=== PATIENT | female | born 1960 | race Caucasian/White ===

== ENCOUNTER → 2024-03-15 15:14 | Outpatient (REF) | payer OTHER, SELFPAY | LOC: WDC 15:14 | PROVIDERS: ATTENDING PHYSICIAN Radiology Radiation Oncology; FAMILY PHYSICIAN Internal Medicine | DX: Z12.31 Encounter for screening mammogram for malignant neoplasm of breast (principal) | CPT/HCPCS: 77063; 77067 ==

== ENCOUNTER → 2024-10-04 13:21 | Outpatient (REF) | payer OTHER, SELFPAY | LOC: RAD 13:21 | PROVIDERS: ATTENDING PHYSICIAN Internal Medicine | DX: R11.2 Nausea with vomiting, unspecified (principal) | CPT/HCPCS: 71260; 74178; Q9967 ==

== ENCOUNTER 2024-11-06 06:03 | Day surgery (SDC) | payer OTHER, SELFPAY ==
[2024-10-23 09:01] LABS: INR 1.03; PT 13.9 Sec (11.4-14.6)
[2024-10-23 09:02] LABS: APTT 27.9 Sec (23.4-35.0)
[2024-10-23 09:03] LABS: Hematocrit 37.2 % (37.0-47.0); Hemoglobin 12.5 g/dL (12.0-16.0); Mean Corp Hgb Conc. 33.6 g/dL (33.0-37.0); Mean Corpuscular Hgb 30.6 pg (27.0-31.0); Mean Corpuscular Volume 91.2 fL (81.0-99.0); Mean Platelet Volume 10.6 fL (7.4-10.4); Platelet Count 282 10^3/uL (130-400); Red Blood Cell Count 4.08 10^6/uL (4.20-5.40); Red Cell Dist. Width 12.6 % (11.5-14.5); White Blood Cell Count 5.1 10^3/uL (4.8-10.8)
[2024-10-23 09:23] LABS: Blood Urea Nitrogen 11 mg/dl (7-17); Calcium 9.9 mg/dl (8.4-10.2); Carbon Dioxide 29 mmol/L (22-30); Chloride 107 mmol/L (98-107); Glucose 86 mg/dl (70-99); Potassium 3.8 mmol/L (3.5-5.1); Sodium 143 mmol/L (135-145); eGFR > 60.00
[2024-10-23 13:42] VITALS: BMI 22.0
[2024-11-06] VITALS (8 sets, daily range): BP systolic 76–108; BP diastolic 49–68; BMI 22.0
== END 2024-11-06 10:45 | disposition home or self-care (01) ==
LOC: GI 06:03
PROVIDERS: ATTENDING PHYSICIAN Internal Medicine Critical Care Medicine; FAMILY PHYSICIAN Internal Medicine
DX: R91.1 Solitary pulmonary nodule (principal); R59.1 Generalized enlarged lymph nodes; C34.11 Malignant neoplasm of upper lobe, right bronchus or lung
CPT/HCPCS: 31628; 31624; 31629; 31623; 31627; 31654; 88173; 88305; 36415; 71045; 76000; 80048; 81459; 85027; 85610; 85730; 88112; 88333; 88341; 88342; 93005; 94640; C1887

== ENCOUNTER → 2024-11-08 07:50 | Outpatient (REF) | payer OTHER, SELFPAY | LOC: PET 07:50 | PROVIDERS: ATTENDING PHYSICIAN Family Medicine Geriatric Medicine | DX: C50.211 Malignant neoplasm of upper-inner quadrant of right female breast (principal); R91.1 Solitary pulmonary nodule | CPT/HCPCS: 78815; A9552 ==

== ENCOUNTER → 2024-11-17 09:08 | Outpatient (REF) | payer OTHER, SELFPAY ==
[2024-11-17] VITALS (8 sets, daily range): BP systolic 65–104; BP diastolic 50–73
[2024-11-17 09:36] LABS: % Basophils 0.8 % (0-2); % Eosinophils 1.6 % (0-6); % Immature Granulocytes 0.2 % (0-0.5); % Lymphocytes 31.8 % (20.5-51.1); % Monocytes 10.4 % (1.7-9.3); % Neutrophils 55.2 % (42.2-75.2); Absolute Eosinophils 0.1 10^3/uL (0-0.7); Absolute Lymphocytes 1.6 10^3/uL (1.2-3.4); Absolute Monocytes 0.5 10^3/uL (0.1-0.6); Absolute Neutrophils 2.7 10^3/uL (1.4-6.5); Hematocrit 36.6 % (37.0-47.0); Hemoglobin 12.7 g/dL (12.0-16.0); Mean Corp Hgb Conc. 34.7 g/dL (33.0-37.0); Mean Corpuscular Hgb 31.4 pg (27.0-31.0); Mean Corpuscular Volume 90.4 fL (81.0-99.0); Mean Platelet Volume 9.9 fL (7.4-10.4); Nucleated Red Blood Cells % 0 %; Platelet Count 271 10^3/uL (130-400); Red Blood Cell Count 4.05 10^6/uL (4.20-5.40); Red Cell Dist. Width 12.8 % (11.5-14.5); White Blood Cell Count 4.9 10^3/uL (4.8-10.8)
[2024-11-17 09:51] LABS: INR 1.08; PT 14.4 Sec (11.4-14.6)
== END ==
LOC: RADI 09:08
PROVIDERS: ATTENDING PHYSICIAN Internal Medicine Hematology & Oncology; FAMILY PHYSICIAN Internal Medicine; REFERRING PHYSICIAN Physician Assistant
DX: C79.51 Secondary malignant neoplasm of bone (principal); C50.911 Malignant neoplasm of unspecified site of right female breast
CPT/HCPCS: 88173; 88305; 20225; 36415; 77012; 85025; 85610; 88333; 88334; 88341; 88342; 88360; 99152; 99153

== ENCOUNTER → 2024-12-01 12:44 | Outpatient (REF) | payer OTHER, SELFPAY | LOC: MRI 3T 12:44 | PROVIDERS: ATTENDING PHYSICIAN Internal Medicine Hematology & Oncology; FAMILY PHYSICIAN Internal Medicine | DX: C50.911 Malignant neoplasm of unspecified site of right female breast (principal); Z13.820 Encounter for screening for osteoporosis; C34.91 Malignant neoplasm of unspecified part of right bronchus or lung | CPT/HCPCS: 70553; A9575 ==

== ENCOUNTER → 2024-12-04 11:43 | Outpatient (REF) | payer OTHER, SELFPAY | LOC: RAD 11:43 | PROVIDERS: ATTENDING PHYSICIAN Internal Medicine Hematology & Oncology; FAMILY PHYSICIAN Internal Medicine | DX: C50.911 Malignant neoplasm of unspecified site of right female breast (principal); Z13.820 Encounter for screening for osteoporosis; C34.91 Malignant neoplasm of unspecified part of right bronchus or lung | CPT/HCPCS: 93005 ==

== ENCOUNTER 2024-12-25 07:55 | Inpatient (IN) | payer MEDICARE, OTHER, SELFPAY ==
[2024-12-19 12:03] VITALS: BMI 21.3
[2024-12-19 12:48] LABS: Urine Albumin 2+ (Neg - Trace); Urine Bilirubin 1+ (Negative); Urine Character Slightly Cloudy (Clear); Urine Color Yellow; Urine Glucose Negative (Negative); Urine Ketone 2+ (Negative); Urine Leukocyte 3+ (Negative); Urine Nitrite Negative (Negative); Urine Occult Blood Negative (Negative); Urine Urobilinogen 1+ (Neg - 1+)
[2024-12-19 12:53] LABS: Hematocrit 31.6 % (37.0-47.0); Mean Corp Hgb Conc. 34.8 g/dL (33.0-37.0); Mean Corpuscular Hgb 31.3 pg (27.0-31.0); Mean Platelet Volume 10.4 fL (7.4-10.4); Platelet Count 197 10^3/uL (130-400); Red Blood Cell Count 3.51 10^6/uL (4.20-5.40); Red Cell Dist. Width 12.6 % (11.5-14.5); White Blood Cell Count 2.9 10^3/uL (4.8-10.8)
[2024-12-19 12:58] LABS: INR 1.06; PT 14.1 Sec (11.4-14.6)
[2024-12-19 12:59] LABS: APTT 25.4 Sec (23.4-35.0)
[2024-12-19 13:02] LABS: Urine Bacteria Few (Negative); Urine Mucus Few; Urine Squamous Cell 0-2 /LPF (Few)
[2024-12-19 13:03] LABS: Urine Red Blood Cell 0-2 /HPF (0-2)
[2024-12-19 13:13] LABS: ALT (SGPT) 14 U/L (0-35); AST (SGOT) 19 U/L (14-36); Alkaline Phosphatase 54 U/L (38-126); Blood Urea Nitrogen 12 mg/dl (7-17); Calcium 9.2 mg/dl (8.4-10.2); Carbon Dioxide 26 mmol/L (22-30); Chloride 106 mmol/L (98-107); Direct Bilirubin 0.1 mg/dl (0.0-0.4); Estimated Creatinine Clearance 61 ml/min; Glucose 124 mg/dl (70-99); Potassium 3.4 mmol/L (3.5-5.1); Sodium 138 mmol/L (135-145); Total Bilirubin 0.5 mg/dl (0.2-1.3); Total Protein 6.1 g/dl (6.3-8.2); eGFR > 60.00
[2024-12-19 13:36] LABS: % Basophils 0.7 % (0-2); % Eosinophils 0.7 % (0-6); % Immature Granulocytes 0.3 % (0-0.5); % Monocytes 4.4 % (1.7-9.3); % Neutrophils 50.9 % (42.2-75.2); Absolute Lymphocytes 1.3 10^3/uL (1.2-3.4); Absolute Monocytes 0.1 10^3/uL (0.1-0.6); Absolute Neutrophils 1.5 10^3/uL (1.4-6.5); Nucleated Red Blood Cells % 0 %
--- NOTE | 2024-12-19 13:41 | CM ---
Chart reviewed. Met with the patient in PAT. Reviewed preoperative and postoperative instructions and restrictions, along with showering guidelines. Gave patient 2 soaps. Patient is agreeable to a home visit by CT Transitional RN. Patient is
independent of ADLS, lives with her brother in a [address], 6 MARY, 0 DME. Plan is for the patient to return home with CT Transitional RN.
[2024-12-19 14:26] LABS: Glycohemoglobin (HgbA1c) 5.4 % (4.0-5.6)
[2024-12-25] VITALS (18 sets, daily range): BP systolic 88–112; BP diastolic 52–74; BMI 20.5
--- NOTE | 2024-12-25 09:00 | PTCARENOTE ---
Patient admitted to room 2267 in anticipation of surgical procedure this am. Patient admits to NPO since midnight, CHG showers completed at home. VS obtained, admission and medication reconciliation completed. Patient oriented to room, unit. Brother
at bedside.
--- NOTE | 2024-12-25 09:50 | CM ---
Patient in OR today for CT Surgery, RU Lobectomy.
Reviewed initial assessment. Pt. resides w/ brother in a private, [facility] with 6 MARY. Functionally, patient is indep. w/ ADLs, mobility without the use of any assisted device.
Antic. DC plan is for home w/ CT Transitional Care RN.
CM to follow.
--- NOTE | 2024-12-25 10:15 | PTCARENOTE ---
Patient transported to [facility] via bed.
[2024-12-25 10:51] LABS: Urine Albumin Negative (Neg - Trace); Urine Bilirubin Negative (Negative); Urine Character Clear (Clear); Urine Color Yellow; Urine Glucose Negative (Negative); Urine Ketone 1+ (Negative); Urine Leukocyte Negative (Negative); Urine Nitrite Negative (Negative); Urine Occult Blood Negative (Negative); Urine Urobilinogen Negative (Neg - 1+)
--- NOTE | 2024-12-25 11:13 | W.CVOR.SURPR ---
CVOR Surgeon Immed Pre Op
-
I have examined this patient prior to performance of the scheduled procedure.
The patient's condition is unchanged from the time of the dictated/written History and
Physical and the patient is able to undergo the scheduled procedure.
Geo RUL _ LN
--- NOTE | 2024-12-25 14:03 | CON.INTV ---
Consultation
Consultation Request
Date/Time Consultation Requested: 12/25/2024 - 1349
Date/Time Consultation Performed: 12/25/2024 - 1408
Requesting Provider: Silvia Ritchie NP
Performing Provider: Dr. Ocasio
Reason for Consultation: RUL-lobectomy
Medical History
-
Chief Complaint: Elective right upper lobectomy
History of Present Illness:
63-year-old female with a history of recurrent metastatic breast cancer with bony mets, chemotherapy-induced peripheral neuropathy, anemia, Rosita's disease, hypercholesterolemia, right shoulder arthritis, latent TB, and right-sided pulmonary
adenocarcinoma who presents for robotic assisted right upper lobectomy. Patient known to the cardiothoracic surgery service with last visit on 12/13/[address] Jones. On 10/04/2024, patient had a CT chest, abdomen, pelvis due to nausea, vomiting,
weight loss and history of breast cancer. A right upper lobe nodule measuring 1.6 cm was discovered. She was arranged for a robotic bronchoscopy which she obtained on 11/06/2024 of the anterior right upper lobe by Dr. Curiel. Surgical biopsy
showed pulmonary adenocarcinoma, and 4R, station 7 and 10R lymph nodes were all negative for malignancy. [facility] PET/CT on 11/08/2024 showed a 1.9 cm malignant right upper lobe pulmonary nodule with metastatic right hilar lymphadenopathy and
multifocal osseous metastatic disease with a small metastatic left external iliac lymph node. The right upper lobe nodule SUV max was 6.4 with delayed 5.6. The right hilar lymph node SUV max was 7.1 with delayed 7.9 with no abnormal increased FDG
uptake in the left hilar, supraclavicular, axillary lymph nodes or mediastinum. She was then referred to cardiothoracic surgery for evaluation for lobectomy. PET/CT also showed multiple FDG avid lesions in her skeleton concerning for metastatic
disease. There was a lytic metastasis lesion in the left T9 transverse process measuring SUV max 9.2. On 11/17, IR performed a CT-guided left T9 transverse process FNA which was positive for metastatic carcinoma, with surgical biopsy positive for
metastatic mammary carcinoma (ER + WV positive, HER2 negative). Patient was recommended for resection by oncology, and the patient discussed the risks and benefits of a robotic assisted right upper lobectomy with lymph node dissection. Patient
agreed to this procedure and today she underwent a right upper lobectomy with lymph node dissection and was transferred to the CVICU postoperatively. Family Life Counselor service is now consulted for additional management/recommendations.
When I saw the patient, she was resting in bed in no acute distress. Currently on 2 L/min nasal cannula breathing comfortably. Heart rate 66, BP via A-line 107/53 and BP via NIBP: 108/74. Right-sided chest tube in place on waterseal. She does
endorse right-sided chest pain and also nausea, but no GE, SOB, abd pain, fevers or chills.
Of note, patient was seen in the [facility] office with Dr. Cortez, last visit 10/11/2024. She was seen as a office visit prior to the robotic bronchoscopy on 11/06/2024. She was told to obtain PFTs and she had this done here in the hospital on 12/19/2024
showing a mild restrictive lung defect (T% predicted), with a borderline reduced gas exchange capacity (DLco: 72%).
PMHx: Right lung pulmonary adenocarcinoma, recurrent metastatic breast cancer with bone mets, chemotherapy-induced peripheral neuropathy (paclitaxel), anemia, Rosita's disease, hypercholesterolemia, right shoulder arthritis, migraine headaches,
history of latent TB
PSHx: Right breast mastectomy (10/2020), laparoscopic cholecystectomy, port placement followed by port removal, left cataract surgery, right cataract surgery, ex lap due to fertility issues, T&A
Past Medical History
Past Medical History: Other (Above as per HPI)
Past Surgical History: Other (Above as per HPI)
Social History
Tobacco: Non-smoker
Alcohol: None
Drug: None
Personal:
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
Family History
Family History: Cancer (Maternal grandfather: leukemia; Brother: skin cancer) and Other (Father: Pancreatitis due to alcohol use; Mother: RA/stroke)
Allergies / Home Medications
Allergies
Allergy/AdvReac Type Severity Reaction Status Date / Time
cephalexin Allergy Nausea Verified 12/18/24 12:10
NOVOCAINE Allergy Nausea / Uncoded 12/18/24 12:10
Vomiting
Home Medications
�Medication �Instructions �Recorded �Confirmed �Last Taken �Type
thyroid (pork) 60 mg tablet 60 mg PO SUTUTHSA Thyroid 10/30/20 12/25/24 12/24/24 History
([place] Thyroid)
omega 5-why-kho-fish oil 300 2 ea PO DAILY Supplement 12/09/20 12/18/24 11/03/24 History
mg-1,000 mg capsule (Fish Oil)
thyroid (pork) 30 mg tablet 45 mg PO MOWEFR Thyroid 07/03/21 12/25/24 12/22/24 History
([place] Thyroid)
alpha lipoic acid 100 mg capsule 100 mg PO DAILY Supplement 11/02/24 12/18/24 10/23/24 History
flaxseed oil 1,000 mg capsule 1,000 mg PO DAILY Supplement 11/02/24 12/18/24 11/03/24 History
magnesium carb,citrate,oxide 300 - 600 mg PO DAILY Electrolyte 11/02/24 12/25/24 12/18/24 History
(Magnesium Complex) Repletion
red yeast rice 600 mg capsule 600 mg PO DAILY Supplement 11/02/24 12/18/24 11/03/24 History
vitamin D3 125 mcg (5,000 1 cap PO DAILY Supplement 11/02/24 12/25/24 12/18/24 History
unit)-vitamin K2 100 mcg capsule
Medical Cannibus 1 dose sublingual PRN PRN pain 12/18/24 Unknown History
ibuprofen 200 mg tablet 400 mg PO Q6H PRN pain 12/18/24 12/25/24 12/18/24 History
fulvestrant 125 mg/2.5 mL 500 mg IM Q14D Cancer 12/25/24 12/25/24 12/11/24 History
intramuscular syringe
ribociclib 600 mg/day (200 mg x 3) 600 mg PO DAILY Cancer 12/25/24 12/25/24 12/17/24 History
tablets (Kisqali)
Review of Systems
-
History Source: Patient
All other systems: Negative unless noted
Vitals / Labs / Diagnostic Testing
Vital Signs
Temp Pulse Resp BP Pulse Ox
97.7 F 58 14 94/66 100
12/25/24 07:57 12/25/24 07:57 12/25/24 07:57 12/25/24 07:57 12/25/24 07:57
Lab Data
12/19/24 12:14
12/19/24 12:14
Diagnostic Testing:
Physical Exam
-
HEENT: Normocephalic and Anicteric
Cardiovascular: S1/S2 and Peripheral Edema (negative)
Respiratory: Wheeze (negative), Rales (negative), Rhonchi (negative), Non-Labored Respirations and Other (Right-sided chest tube on continuous waterseal - no airleak)
GI: Soft, Non Distended, Non Tender and Normal Bowel Sounds
Neurology: AO x 3 and Tremors (negative)
Skin: Warm and Dry
General: Respiratory Distress (negative), Pain (Right-sided hemithorax/ribs), Fever (negative) and Chills (negative)
Assessment
-
Assessment: 63-year-old female with a history of recurrent metastatic breast cancer with bony mets, chemotherapy-induced peripheral neuropathy, anemia, Rosita's disease, hypercholesterolemia, right shoulder arthritis, latent TB, and right-sided
pulmonary adenocarcinoma who presents for robotic assisted right upper lobectomy. Patient known to the cardiothoracic surgery service with last visit on 12/13/[address] Jones. On 10/04/2024, patient had a CT chest, abdomen, pelvis due to nausea,
vomiting, weight loss and history of breast cancer. A right upper lobe nodule measuring 1.6 cm was discovered. She was arranged for a robotic bronchoscopy which she obtained on 11/06/2024 of the anterior right upper lobe by Dr. Curiel. Surgical
biopsy showed pulmonary adenocarcinoma, and 4R, station 7 and 10R lymph nodes were all negative for malignancy. [facility] PET/CT on 11/08/2024 showed a 1.9 cm malignant right upper lobe pulmonary nodule with metastatic right hilar lymphadenopathy
and multifocal osseous metastatic disease with a small metastatic left external iliac lymph node. The right upper lobe nodule SUV max was 6.4 with delayed 5.6. The right hilar lymph node SUV max was 7.1 with delayed 7.9 with no abnormal increased
FDG uptake in the left hilar, supraclavicular, axillary lymph nodes or mediastinum. She was then referred to cardiothoracic surgery for evaluation for lobectomy. PET/CT also showed multiple FDG avid lesions in her skeleton concerning for
metastatic disease. There was a lytic metastasis lesion in the left T9 transverse process measuring SUV max 9.2. On 11/17, IR performed a CT-guided left T9 transverse process FNA which was positive for metastatic carcinoma, with surgical biopsy
positive for metastatic mammary carcinoma (ER + WV positive, HER2 negative). Patient was recommended for resection by oncology, and the patient discussed the risks and benefits of a robotic assisted right upper lobectomy with lymph node dissection.
Patient agreed to this procedure and today she underwent a right upper lobectomy with lymph node dissection and was transferred to the CVICU postoperatively. Family Life Counselor service is now consulted for additional management/recommendations.
Chronic conditions PROJECT PRODUCT MANAGER: Right lung pulmonary adenocarcinoma, recurrent metastatic breast cancer with bone mets, chemotherapy-induced peripheral neuropathy (paclitaxel), anemia, Rosita's disease, hypercholesterolemia, right shoulder arthritis,
migraine headaches, history of latent TB
Impression:
#Right-sided pulmonary adenocarcinoma (Stage IA2) s/p RATS�right upper lobectomy with radical lymph node dissection (POD #0)
#Acute anemia due to above
#Hypokalemia
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
#Mild restrictive lung disease (T%, vital capacity: 82% per PFTs from 12/19/2024)
#Rosita's thyroiditis
#Hypercholesterolemia
#Right shoulder arthritis
Plan:
Patient was received from the PACU to the CVICU already extubated, currently on 2 L/min nasal cannula saturating 99% and breathing comfortably
Maintain SpO2 >90-94%
prn nebulized bronchodilators - not currently bronchospastic
Encourage incentive spirometer use q1hr while awake
Pulmonary artery catheter parameters will be followed
Pressors/antihypertensive/inotropes/diuretics will be provided as needed
Maintain MAP>65
Replete electrolytes with K>4, Mg>2
Monitor chest tube output (right-sided chest tube x1 - currently on CWS)
Monitor hemoglobin
Monitor platelet count and coags
Transfuse blood products as needed to maintain Hb>7g/dL, plt>50k (given post-operative status)
CT surgery managing chest tubes
Monitor blood sugar to maintain euglycemia with goal BG 110-140
Continue ISS to keep BG at goal as above
Aspiration precautions
DVT prophylaxis
Early nutrition
Early mobilization
Following discharge, patient is to follow-up with [facility] office with Dr. Cortez, as last visit on 10/11/2024.
Continue CVICU level care for this critically ill patient.
Critical care statement: A total of 36 minutes of critical care time was provided for this patient today. This includes management of ventilator, spontaneous breathing trial, arterial blood gases, pressors, of unstable vital signs, evaluation of the
patient at bedside, reviewing the patient's pertinent medical records including radiographs, microbiology, laboratory evaluations, and discussion with primary team and critical care nursing.
Pertinent pulmonary studies:
PFT 12/19/2024:
Mild restrictive lung defect with a borderline mildly reduced gas exchange capacity. No evidence of obstruction. FEV1/FVC: 81/103%, FEV1: 2.14 L / 91%, FVC: 2.64 L / 88%, T%, VC: 82%, RV: 51%, DLco (uncorrected): 72%, DLco (corrected): 76%
--- NOTE | 2024-12-25 14:18 | W.PN.CT.SURG ---
CT Surgery Operative Note
-
THORACIC SURGERY OPERATIVE REPORT
Preoperative Diagnosis: Pulmonary adenocarcinoma of the right upper lobe
Postoperative Diagnosis: Same
Procedure(s) Performed:
1. Robotic assisted thoracic surgery [RATS]
2. Right upper lobectomy
3. Radical lymph node dissection
4. Intercostal nerve block interspaces 4 through 8
Date of Surgery: 12/25/2024
Comorbidities:
1. Metastatic breast cancer on chemotherapy and immunotherapy status post radiation
2. Malnourished, weight loss
3. Rosita's disease
4. Thyroid disease
5. Right upper lobe primary pulmonary adenocarcinoma
Attending Surgeon: Thai Jones MD, MS
Assistants: Ghada Daugherty PA-C (present and necessary to assistant merchandiser, exchanging robotic instruments, retraction, suction, exposure, suture management, and wound closure under my direction)
Anesthesiology: Elkin Meyer MD and Viktor Daigle CRNA
Scrub and Circulating RNs: Sherrie Black RN, Merritt Macias RN
Anesthesia: Dual Lumen GETA
EBL: 100 cc
Products: None
Indication(s) for Procedures: This is a 63-year-old female who has a metastatic hormone receptor positive breast cancer and was newly diagnosed with non-small cell lung cancer. Multidisciplinary team discussion was that her survival was likely at
least 35% in 5 years and so with her stage I lung cancer, we opted for surgical resection as well as lymph node dissection. This was discussed with the patient and shared decision making was to pursue operative intervention.
Findings: There are no obvious intrathoracic lesions concerning for metachronous disease, she did well developed fissures between the right upper and right middle and right upper and right lower lobes. She had large bridging veins between the right
upper and right middle lobes these were taken with a vessel sealer intraoperatively. The right middle vein was isolated identified going to the right middle lobe. The veins heading up towards the right upper lobe were then transected with a white
load stapler flush to their hilar base. This then opened up the hilum in order to expose the major bronchus branch leading to the right upper lobe as well as a single ascending branch off the basilar PA. There was a very large somewhat calcified
and hard station 11 lymph node thousand touch to the bronchus leading to the right upper lobe. This was taken and sent out as part of the specimen. This then exposed the hilum. Any parenchymal tissue between the right upper and right lower lobes
were then divided with a green load stapler. Once all arteries were divided, the lung was elevated and the bronchus to the right upper lobe was then clamped and test inflation was done. This demonstrated unobstructed flow to the remaining right
middle and right lower lobes. Lung was then transected and placed into a specimen bag along with that abnormal appearing station 11 lymph node. She had several chest wall bleeding vessels that required electrocautery. Otherwise both right lower
and right middle lobes expanded easily and she had no significant loss of tidal volume or air leak at conclusion of the case.
Specimen(s):
Station 9, x 3 nodes
Station 10, x 1 nodes
Station 11, x 3 nodes (there was 1 enlarged, hard, and abnormal appearing node)
Station 2/4 sent off as a packet
Station 7, x 4 nodes
Right upper lobe
Description of Procedure: The patient was taken to the operating room. Induction via general anesthesia with endotracheal intubation was performed and peripheral venous access and arterial monitoring were inserted. Their identity and procedure to be
performed were verified and they were positioned with the right side up on the operating table. The patient was then prepped and draped in a sterile fashion. A preoperative time-out was performed with all members of the team present. A Veress
needle was used to insufflate the chest after isolating the lung. An 8 mm port was placed in the midaxillary line at approximately the eighth intercostal space and confirmed to be intrathoracic without significant pulmonary injury. The chest was
surveyed for any evidence of metastatic disease. Patient tolerate insufflation without complication. 2 additional 12 mm trocars were placed on either side under camera guidance and a third 8 mm trocar was placed along the back. A 12 mm medical clerical assistant
port was placed in the 11th intercostal space above the insertion of the diaphragm. An intercostal nerve block was performed at intercostal spaces 4 through 8.
The thoracic cavity was inspected for evidence of metastatic disease. None was observed. We started with mobilization of the inferior pulmonary ligament. We worked our way clockwise dissecting out the hilum and harvest any lymph nodes identified.
The pulmonary arteries and veins leading to the right upper lobe were identified and skeletonized. They were sequentially divided with a white load stapler. I clamped the bronchus and performed a test inflation which demonstrated unobstructed flow
into the remaining right middle and lower lobe. The specimen was displaced toward the apex while a chest tube was inserted and placed laterally towards the apex. A bubble test was performed to identify any air leaks. CoSeal was used to reinforce
the staple lines and hilum. The right upper lobe was then placed into a specimen bag and extracted from the chest cavity. There were several chest wall bleeding sites from the port sites this required manipulation of the camera through different
ports in order to expose the bleeding vessels which were cauterized. After confirming hemostasis, the lung was fully inflated and all ports were removed. Incisions were closed in 3 layers including the fascia, dermal, and epidermis. Additional
local anesthesia was injected into all incision sites. The skin wound was cleansed and sealed with Dermabond glue.
All instrument, sponge, and needle counts were confirmed to be correct x 2 at the end of the operation. The patient was transferred to the cardiac intensive care unit extubated in critical but stable condition.
I, Dr. Thai Jones, was present, scrubbed for, and performed all critical elements of this procedure.
Thai Jones MD, MS
Cardiothoracic Surgeon
[facility]
This operative dictation was created using the zePASS dictation system. Please excuse any grammatical, typographical, or 'sound alike' errors
[2024-12-25] MEDS: ANCEF IV (15:05)
[2024-12-25] MEDS: DILAUDID 0.25 MG IV ×2 (15:12→20:34)
[2024-12-25] MEDS: ANCEF 10 IV (15:56)
--- NOTE | 2024-12-25 16:35 | PTCARENOTE ---
Patient received from PACU s/p RU lobectomy. SB/NSR via cm, SaO2 @ 99% on 2lnc. L radial arterial line present - leveled, flushed, and calibrated w/good waveform returned. R mid-axillary chest tube to H2O seal, no crepitus noted. All procedural
sites stable. Patient updated to plan of care for the evening, in agreement. Family to bedside. See work list for full assessment and interventions performed.
[2024-12-25] MEDS: NEURONTIN 100 MG PO ×2 (16:53→21:46)
[2024-12-25] MEDS: ANCEF 5 IV (17:54)
[2024-12-25] MEDS: ZOFRAN 4 MG IV (20:30)
[2024-12-25] MEDS: SENOKOT 8.6 MG PO (20:35)
--- NOTE | 2024-12-25 21:00 | PTCARENOTE ---
Assumed care of pt from alexsandra RN. Walking rounds completed. Pt is AAOx3. Pt assisted out of the bed and to the commode to void w/ assistx1. Pt able to void then positioned back into bed. During transfer back to bed - pt became nauseous. Zofran
given - see MAR. Pt sinus charlotte to SR on the tele monitor. HR 50-60s. BP stable. Palpable pulses throughout. No edema. Pt on 2 L NC. POX 98%. Right midaxillary CT to water seal. No airleak noted. +tidaling. CT output appropriate. Abdomen
soft/nontender. Hypoactive BS. Pt voided post [place] removal. All surgical sites stable. PIV x2 intact. Pt c/o pain - see MAR for pain medication administration. Pt repositioned in bed for comfort. See worklist for full nursing assessment and
interventions. Call segovia within reach.
[2024-12-25] MEDS: TYLENOL 1000 MG PO (21:46)
[2024-12-26] VITALS (11 sets, daily range): BP systolic 82–102; BP diastolic 50–65; BMI 20.9
[2024-12-26] MEDS: HEPARIN 5000 UNITS SC ×2 (00:23→08:07)
[2024-12-26] MEDS: DILAUDID 0.25 MG IV (00:23)
--- NOTE | 2024-12-26 00:54 | PTCARENOTE ---
Pt reassessed. Sinus charlotte to SR on the tele monitor. HR 50-60s. BP stable. Pt is 97% on 2 L NC. CTx1 assessment unchanged. No airleak. +Tidaling. A-febrile. Pt reposited in bed. See MAR for pain medication administration. Call segovia within reach.
--- NOTE | 2024-12-26 01:03 | W.PN.CT ---
Today's Communication / Plan
-
Plan:
-No major issues overnight. Hemodynamically and neurologically intact
-Successfully extubated in OR
-A-line and [place] removed shortly after surgery
-Chest tube placed on water seal yesterday. Drainage: 110/190
-No air leak noted, No ptx or significant SQ emphysema on cxr this AM on my assessment, f/u official report
-Will consider water seal another day vs clamping and d/c of chest tube today
-OOB into chair/Ambulate
-F/U pathology
Assessment / Plan
-
Assessment:
-S/P Robotic assisted thoracic surgery [RATS]/Right upper lobectomy/Radical lymph node dissection/Intercostal nerve block interspaces 4 through 8, by Dr. Jones, 12/25/24, pod#1
-Metastatic breast cancer on chemotherapy and immunotherapy status post radiation
-Malnourished, weight loss
-Rosita's disease
-Right upper lobe primary pulmonary adenocarcinoma
-Anemia
-HLD
-Osteoarthritis
-Hx Breast ca S/P R mastectomy, 2020
-S/P port placement and removal, 2020
-S/p b/l cataracts
-S/P T&A
Discussed patient care with: Nursing, Respiratory Therapy, Pharmacy and Care Team
Subjective
Procedure
-S/P Robotic assisted thoracic surgery [RATS]/Right upper lobectomy/Radical lymph node dissection/Intercostal nerve block interspaces 4 through 8, by Dr. Jones, 12/25/24
-
Date of Service: December 26, 2024
Pt c/o mild incisional pain and nausea, otherwise feels well. Nausea has resolved
Objective Data
-
PT 14.1 Sec (11.4-14.6) 12/19/24 12:14
INR 1.06 12/19/24 12:14
APTT 25.4 Sec (23.4-35.0) 12/19/24 12:14
Vital Signs
Vital Signs
Temp Pulse Resp BP Pulse Ox
98 F 63 20 102/59 100
12/26/24 00:00 12/26/24 00:15 12/26/24 00:15 12/26/24 00:00 12/26/24 00:15
CT Intake/Output/Weight
12/25/24 12/25/24 12/26/24
06:59 18:59 06:59
Intake Total 485 / 485
Output Total 80 / 840 760 / 840
Balance 405 / -355 -760 / -355
SaO2: 100 (2L)
Physical Exam
-
General: Awake, Oriented and AOx3
Cardiovascular: Regular rate & rhythm and No Murmurs
Respiratory: Decreased Breath Sounds (on right)
Incision: Clean, Dry, Intact and Dressing Intact
Extremities: No Edema
Data Reviewed
-
Lab Results: Results Reviewed
Medications: Active Meds Reviewed
Chest X-Ray: Report Reviewed and Image Reviewed
ECG: Report Reviewed and Image Reviewed
[2024-12-26] MEDS: ANCEF 5 IV ×2 (02:08→09:44)
[2024-12-26 02:38] LABS: Hematocrit 32.4 % (37.0-47.0); Hemoglobin 11.5 g/dL (12.0-16.0); Mean Corp Hgb Conc. 35.5 g/dL (33.0-37.0); Mean Corpuscular Hgb 32.1 pg (27.0-31.0); Mean Corpuscular Volume 90.5 fL (81.0-99.0); Mean Platelet Volume 10.3 fL (7.4-10.4); Platelet Count 138 10^3/uL (130-400); Red Blood Cell Count 3.58 10^6/uL (4.20-5.40); Red Cell Dist. Width 13.2 % (11.5-14.5)
[2024-12-26 03:23] LABS: Blood Urea Nitrogen 9 mg/dl (7-17); Calcium 9.3 mg/dl (8.4-10.2); Carbon Dioxide 25 mmol/L (22-30); Chloride 108 mmol/L (98-107); Estimated Creatinine Clearance 82 ml/min; Glucose 119 mg/dl (70-99); Magnesium 2.3 mg/dl (1.6-2.3); Potassium 4.4 mmol/L (3.5-5.1); Sodium 139 mmol/L (135-145); eGFR > 60.00
--- NOTE | 2024-12-26 04:04 | PTCARENOTE ---
Pt reassessed. Sinus charlotte on the tele monitor. HR 50s. BP stable. Pt is 98% on [address] assessment unchanged from prior. Output appropriate. All surgical sites stable. Pt is 1x assist OOB to void. Pt repositioned in bed for comfort. Ordered labs
sent ~0230. Call segovia within reach.
[2024-12-26] MEDS: ARMOUR THYROID 60 MG PO (06:46)
[2024-12-26] MEDS: TYLENOL 1000 MG PO (06:46)
--- NOTE | 2024-12-26 07:21 | PTCARENOTE ---
Received pt from lna RN; pt AAOx3 and resting comfortably in chair; Sinus Bradycardia on monitor and VSS; Lungs diminished; IS to 750; CT x1 to water seal; no crepitus or air leak noted; positive bowel sounds; pt voiding yellow urine;
palpable pulses throughout; no edema noted; all surgical sites C/D/I; see nursing documentation for further details.
[2024-12-26] MEDS: TORADOL 15 MG IV (08:07)
[2024-12-26] MEDS: NEURONTIN 100 MG PO (08:08)
[2024-12-26] MEDS: LIDOCAINE 4% PATCH 1 PATCH TOPICAL (08:08)
[2024-12-26] MEDS: MIRALAX 17 GRAMS PO (08:08)
[2024-12-26] MEDS: SENOKOT PO (08:09)
--- NOTE | 2024-12-26 08:30 | W.PN.INTV ---
Today's Communication / Plan
Recommendations
Up OOB as tolerated
Pain control
Outpatient pulmonary office follow-up will be arranged with Dr. Cortez
Encouraged incentive spirometer
Patient is being prepared for discharge home today. No additional recommendations at this time. Product Specialist/Pulmonary service will now sign off. Please reconsult if there are any additional questions/concerns, or if patient's respiratory status
deteriorates.
Assessment
-
Assessment: 63-year-old female with a history of recurrent metastatic breast cancer with bony mets, chemotherapy-induced peripheral neuropathy, anemia, Rosita's disease, hypercholesterolemia, right shoulder arthritis, latent TB, and right-sided
pulmonary adenocarcinoma who presents for robotic assisted right upper lobectomy. Patient known to the cardiothoracic surgery service with last visit on 12/13/[address] Jones. On 10/04/2024, patient had a CT chest, abdomen, pelvis due to nausea,
vomiting, weight loss and history of breast cancer. A right upper lobe nodule measuring 1.6 cm was discovered. She was arranged for a robotic bronchoscopy which she obtained on 11/06/2024 of the anterior right upper lobe by Dr. Curiel. Surgical
biopsy showed pulmonary adenocarcinoma, and 4R, station 7 and 10R lymph nodes were all negative for malignancy. [facility] PET/CT on 11/08/2024 showed a 1.9 cm malignant right upper lobe pulmonary nodule with metastatic right hilar lymphadenopathy
and multifocal osseous metastatic disease with a small metastatic left external iliac lymph node. The right upper lobe nodule SUV max was 6.4 with delayed 5.6. The right hilar lymph node SUV max was 7.1 with delayed 7.9 with no abnormal increased
FDG uptake in the left hilar, supraclavicular, axillary lymph nodes or mediastinum. She was then referred to cardiothoracic surgery for evaluation for lobectomy. PET/CT also showed multiple FDG avid lesions in her skeleton concerning for
metastatic disease. There was a lytic metastasis lesion in the left T9 transverse process measuring SUV max 9.2. On 11/17, IR performed a CT-guided left T9 transverse process FNA which was positive for metastatic carcinoma, with surgical biopsy
positive for metastatic mammary carcinoma (ER + OK positive, HER2 negative). Patient was recommended for resection by oncology, and the patient discussed the risks and benefits of a robotic assisted right upper lobectomy with lymph node dissection.
Patient agreed to this procedure and on 12/25/2024, she underwent a right upper lobectomy with lymph node dissection and was transferred to the CVICU postoperatively. Product Specialist service is now consulted for additional management/recommendations.
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
migraine headaches, history of latent TB
Impression:
#Right-sided pulmonary adenocarcinoma (Stage IA2) s/p RATS�right upper lobectomy with radical lymph node dissection (POD #1)
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
#Mild restrictive lung disease (T%, vital capacity: 82% per PFTs from 12/19/2024)
#Rosita's thyroiditis
#Hypercholesterolemia
#Right shoulder arthritis
Plan:
Patient was received from the PACU to the CVICU already extubated, now on room air from 2 L/min nasal cannula yesterday, now saturating 96-97% and breathing comfortably
Maintain SpO2 >90-94%
prn nebulized bronchodilators - not currently bronchospastic
Encourage incentive spirometer use q1hr while awake
Maintain MAP>65
Replete electrolytes with K>4, Mg>2
Right-sided chest tube removed today at bedside
Monitor hemoglobin
Monitor platelet count and coags
Transfuse blood products as needed to maintain Hb>7g/dL, plt>50k (given post-operative status)
Monitor blood sugar to maintain euglycemia with goal BG 110-140
Continue ISS to keep BG at goal as above
Aspiration precautions
DVT prophylaxis
Early nutrition
Early mobilization
Following discharge, patient is to follow-up with [facility] office with Dr. Cortez, as last visit on 10/11/2024.
Patient is being prepared for discharge home today. No additional recommendations at this time. Product Specialist/Pulmonary service will now sign off. Thank you for allowing us to be involved in the care of this patient. Please reconsult if there are
any additional questions/concerns, or if patient's respiratory status deteriorates.
Pertinent pulmonary studies:
PFT 12/19/2024:
Mild restrictive lung defect with a borderline mildly reduced gas exchange capacity. No evidence of obstruction. FEV1/FVC: 81/103%, FEV1: 2.14 L / 91%, FVC: 2.64 L / 88%, T%, VC: 82%, RV: 51%, DLco (uncorrected): 72%, DLco (corrected): 76%
Total time spent today was 58 minutes for this encounter. Time includes reviewing laboratory test/imaging results, reviewing pertinent medical records, obtaining and reviewing medical history, performing an appropriate exam, ordering medications,
tests and procedures. Time also includes documentation of this encounter, coordinating patient care and communicating with other healthcare professionals. Total time does not include separately billed tests performed on this date of service.
Subjective Dataa
Subjective Data
Date of Service:
Date of Service: December 26, 2024
Chief Complaint: Product Specialist Follow Up
Subjective:
Patient seen and evaluated today at bedside. Feels well. Patient's friend is at bedside and she says that Pearl's color has improved and she overall looks great. Patient has chest discomfort from the recent operation but otherwise denies SOB,
nausea, vomiting, fevers or chills. Patient is being prepared for discharge home today.
Review of Systems
General: Other (Negative unless mentioned above)
Objective Data
Data Reviewed
Vital Signs / I&O / Oxygen:
Vital Signs
Temp Pulse Resp BP Pulse Ox
98.1 F 70 16 90/53 96
12/26/24 11:37 12/26/24 14:20 12/26/24 11:37 12/26/24 14:52 12/26/24 11:37
Intake and Output
12/25/24 12/26/24 12/27/24
06:59 06:59 06:59
Intake Total 485 / 485
Output Total 1924 / 1924
Balance -1440 / -1440 -
SaO2 96
Nasal Cannula flow liters per 2
minute
Physical Exam
General: Respiratory Distress (negative), Chills (negative) and Sweats (negative)
HEENT: Normocephalic and Anicteric
Cardiovascular: S1-S2, Rub (negative) and Peripheral Edema (negative)
Respiratory: Wheeze (negative), Crackles (Bibasilar), Rhonchi and Non-Labored Respirations
GI: Soft, Non Distended, Non Tender and Normal Bowel Sounds
Neurology: AO x 3 and Tremors (negative)
Skin: Warm, Dry, Cyanosis (negative) and Jaundice (negative)
Labs/Micro/Reports
Lab Data
12/26/24 02:27
12/26/24 02:27
--- NOTE | 2024-12-26 09:09 | PTCARENOTE ---
CTx1 removed by CT CAR SPOTTER and RN.
--- NOTE | 2024-12-26 12:21 | PTCARENOTE ---
Sinus Bradycardia on monitor and VSS; assessment unchanged and pt resting comfortably in chair.
--- NOTE | 2024-12-26 12:22 | W.DCSUMMARY ---
Discharge Summary
Discharge Data
Date of Admission: 12/25/24
Date of Discharge: 12/26/24
-
Pending Results: No
Hospital Course
Primary care physician: Lorelei Nash
Outpatient finished yarn examiner: Tre Cortez
Inpatient consultants: pulmonary airframe and powerplant mechanic
Procedures:
1. Robotic assisted right upper lobe lobectomy, lymph node dissection
Primary Diagnosis:
1. Pulmonary adenocarcinoma of the right upper lobe
Secondary Diagnoses:
1. Metastatic breast cancer on chemotherapy and immunotherapy status post radiation
2. Malnourished, weight loss (BMI 20.9)
3. Rosita's disease
4. Thyroid disease
HPI: 63-year-old female was electively admitted on 12/25/2024 for right upper lobe lobectomy due to non-small cell lung carcinoma and right upper lobe 1.6 cm nodule.
Hospital course: Patient was brought to the operating room and underwent robotic assisted right upper lobe lobectomy with radical lymph node dissection by Dr. Thai Jones. Patient was extubated in the operating room and right pleural chest tube
was placed to water seal. [place] catheter in arterial line were removed. Patient returned to CVICU and remained on water seal throughout the night. Morning CXR reported no pneumothorax and pleural tube was removed without difficulty. Follow up CXR
also reported no pneumothorax. Patient reported pain level at 2 of 10 scale. No beta po given as chronic low normal range SBP 80s-90s and asymptomatic. Transitional nurses notified of need for follow up CXR in 1 week.
Home medication changes:
gabapentin, oxycodone, Flexeril for pain
Discharge Plan
-
Patient Disposition: Home (Routine Discharge)
Discharge Diagnosis/Procedures: right upper lobectomy and lymph node dissection
Condition: Good
Diet: No restrictions
Activity: No strenuous activity
Driving Restrictions: No driving for 2 weeks
Bathing Restrictions: OK to Shower
Others Tests: CXR (PA & lat) in 1 week
Specialty Instructions: Weigh Daily- Call MD for wt gain/loss 3 lbs overnight/5 lbs in 1 week
Referrals:
CT Transitional Care Nurse [Outside]
Referral Note: The Cardiothoracic Transitional Care Nurse will call you to set up a visit in 1-2 days.
Lorelei Nash PA-C [Family Provider, Internal Medicine]
Thai Jones MD [Active, Cardiac Surgery] - 01/15/25 2:15 pm
Prescriptions:
New
cyclobenzaprine 10 mg Tablet
5 mg PO Q8HPRN PRN (Reason: muscle spasm) Qty: 10 0RF
acetaminophen 325 mg Tablet
650 mg PO Q4HPRN PRN (Reason: mild pain,headache,temp >101F ) Qty: 0 0RF
gabapentin 100 mg Capsule
100 mg PO TID Qty: 30 0RF
oxycodone 5 mg Tablet
5 mg PO Q4HPRN PRN (Reason: severe pain) Qty: 15 0RF
Continued
thyroid (pork) [Warne Thyroid] 60 MG tablet
60 mg PO SUTUTHSA
omega 2-jgd-rds-fish oil [Fish Oil] 1 EACH capsule
2 ea PO DAILY
thyroid (pork) [Warne Thyroid] 30 MG tablet
45 mg PO MOWEFR
flaxseed oil 1,000 mg Capsule
1,000 mg PO DAILY
red yeast rice 600 mg Capsule
600 mg PO DAILY
alpha lipoic acid 100 mg Capsule
100 mg PO DAILY
Magnesium Complex 300 mg magnesium Tablet
300 - 600 mg PO DAILY
vitamin D3-vitamin K2 125 mcg (5,000 unit)-100 mcg Capsule
1 cap PO DAILY
ibuprofen 200 mg Tablet
400 mg PO Q6H PRN (Reason: pain)
Medical Cannibus
1 dose sublingual PRN PRN (Reason: pain)
fulvestrant 125 mg/2.5 Syringe
500 mg IM Q14D
Held
Kisqali 600 mg/day (200 mg x 3) Tablet
600 mg PO DAILY
Hold Instructions: Resume on 01/01/25. hold x 1 week after lung surgery
Discharge Orders:
Discharge Patient (As Directed); Ordered 12/26/24
Ordered By: Jaylin Fry
Care Plan Goals
Care Plan Goals:
Problem: Readiness for enhanced knowledge related to diagnosis and treatment plan
Goal: Understand your diagnosis and treatment plan needs, including medications if applicable.
Instructions: Know your diagnosis, underlying causes and treatment plan options, including medications if applicable. Consult with your health care team to learn about your diagnosis and treatment plan, including medications if applicable.
Discharge Date and Time
Print Language: HONG KONGER
--- NOTE | 2024-12-26 12:32 | W.PN.UPDATE ---
Update Note
Progress Note Update
No pneumothorax on morning x-ray. Right pleural chest tube removed without difficulty and secured with pursestring suture. Occlusive dressing applied. Patient reported pain level at 2 out of 10 scale.
--- NOTE | 2024-12-26 14:45 | PTCARENOTE ---
Dr Jones and CTNP aware of pt BP ok for discharge.
[2024-12-26] MEDS: TYLENOL PO (14:50)
--- NOTE | 2024-12-26 14:50 | PTCARENOTE ---
Discharge paperwork gone over with Patient and all questions answered; belongings collected; IVx2 removed and monitoring manager removed; pt wheel chaired to friends car.
--- NOTE | 2024-12-26 16:37 | PN.CDI ---
CDI
- -
CDI:
Physician Documentation Request
Admit Date: 12/25/24 07:55
Dear Doctor,
Please review the following and provide your response in the progress notes.
Clinical Indicators:
Documentation includes the diagnosis of Malnourished, Other clinical indicators are:
Pt admitted with RUL lung cancer s/p lobectomy 12/25
Documented in operative report and Progress note 12/26,' Malnourished, weight loss...'
To ensure the quality of the medical record, based on the above information and the recognized standards for malnutrition , could you please verify in your progress notes which of the following responses best reflects the patient's nutritional
status:
(Specify severity) Malnutrition is/was present and is a clinical diagnosis (please provide additional support in the medical record)
After careful study malnutrition has been ruled out
Other (please specify)
[employer] Criteria ([facility] Hospitalist 2017)
2 or more criteria must be present for either
non severe or severe malnutrition
Note that the criteria differs related to the
presence of an acute or chronic illness
Acute Illness Chronic Illness
Energy Intake Non Severe: <75% for >7 days Non Severe: <75% for >1 month
Severe: <50% for >5 days Severe: <75% for >1 month
Weight Loss Non Severe: 1-2% over 1 week Non Severe: 5% over 1 month
5% over 1 month 7.5% over 3 months
7.5% over 3 months 10% over 6 months
1 year N/A 20% over 1 year
Severe: >2% over 1 week Severe: >5% over 1 month
>5% over 1 month >7.5% over 3 months
>7.5% over 3 months >10% over 6 months
1 year N/A >20% over 1 year
Body Fat Non Severe: Mild Decrease Non Severe: Mild Loss
Severe: Moderate Decrease Severe: Severe Loss
Muscle Mass Non Severe: Mild Decrease Non Severe: Mild Loss
Severe: Moderate Decrease Severe: Severe Loss
Fluid Accumulation Non Severe: Mild Accumulation Non Severe: Mild Accumulation
Severe: Moderate to severe Severe: Moderate to severe
accumulation accumulation
Reduced Physiatrist Strength Non Severe: N/A Non Severe: N/A
Severe: Measurably reduced Severe: Measurably reduced
Additional criteria that can be used to Determine if Mild or Moderate Malnutrition ([employer] Manual 2018)
Use of terms such as suspected, likely, concern for, or probable (associated with a specific diagnosis that is being evaluated, monitored, or treated as if it exists) are acceptable and can be coded in the inpatient setting, when documented at the
time of discharge.
Thank you,
Letty Dacosta RN
CDI Specialist
[place] Text
Please use your independent medical judgment in providing your response.
--- NOTE | 2024-12-27 13:58 | W.PN.UPDATE ---
Update Note
Progress Note Update
CDI Inquiry: probable malnourishment and weight loss secondary to metastatic breast cancer with chemotherapy, immunotherapy, and s/p radiation.
== END 2024-12-26 17:37 | disposition home or self-care (01) | DRG 164 ==
LOC: CVICU 07:55
PROVIDERS: ADMITTING PHYSICIAN Thoracic Surgery (Cardiothoracic Vascular Surgery); FAMILY PHYSICIAN Physician Assistant; OTHER PHYSICIAN Internal Medicine Critical Care Medicine; REFERRING PHYSICIAN Internal Medicine Gastroenterology
PROC: 8E0W4CZ Robotic Assisted Procedure of Trunk Region, Percutaneous Endoscopic Approach (ICD-10-PCS; 2024-12-25)
PROC: 07T74ZZ Resection of Thorax Lymphatic, Percutaneous Endoscopic Approach (ICD-10-PCS; 2024-12-25)
PROC: 0BTC4ZZ Resection of Right Upper Lung Lobe, Percutaneous Endoscopic Approach (ICD-10-PCS; 2024-12-25)
DX: C34.11 Malignant neoplasm of upper lobe, right bronchus or lung (principal); C77.5 Secondary and unspecified malignant neoplasm of intrapelvic lymph nodes; C79.51 Secondary malignant neoplasm of bone; E46 Unspecified protein-calorie malnutrition; E06.3 Autoimmune thyroiditis; T45.1X5A Adverse effect of antineoplastic and immunosuppressive drugs, initial encounter; G62.0 Drug-induced polyneuropathy; D63.0 Anemia in neoplastic disease; E78.00 Pure hypercholesterolemia, unspecified; M19.011 Primary osteoarthritis, right shoulder; C50.919 Malignant neoplasm of unspecified site of unspecified female breast; J98.4 Other disorders of lung; E87.6 Hypokalemia; Z68.20 Body mass index [BMI] 20.0-20.9, adult; Z79.899 Other long term (current) drug therapy; Z86.15 Personal history of latent tuberculosis infection; Z90.11 Acquired absence of right breast and nipple; Z92.21 Personal history of antineoplastic chemotherapy; Z92.3 Personal history of irradiation
CPT/HCPCS: 88305; 88309; 94727; 94729; 32505; 36415; 71045; 80048; 80053; 81003; 81015; 82248; 83036; 83735; 85025; 85027; 85610; 85730; 86850; 86900; 86901; 86920; 87070; 87086; 88341; 88342; 88738; 93005; 93880; 94010

== ENCOUNTER → 2025-01-02 10:06 | Outpatient (REF) | payer MEDICARE, OTHER, SELFPAY | LOC: RAD 10:06 | PROVIDERS: ATTENDING PHYSICIAN Thoracic Surgery (Cardiothoracic Vascular Surgery) | DX: C34.11 Malignant neoplasm of upper lobe, right bronchus or lung (principal) | CPT/HCPCS: 71046 ==

== ENCOUNTER → 2025-03-20 14:11 | Outpatient (REF) | payer MEDICARE, OTHER, SELFPAY | LOC: WDC 14:11 | PROVIDERS: ATTENDING PHYSICIAN Family Medicine Geriatric Medicine; FAMILY PHYSICIAN Internal Medicine; OTHER PHYSICIAN Radiology Radiation Oncology | DX: Z12.31 Encounter for screening mammogram for malignant neoplasm of breast (principal); Z12.39 Encounter for other screening for malignant neoplasm of breast; Z85.3 Personal history of malignant neoplasm of breast | CPT/HCPCS: 77063; 77067 ==

== ENCOUNTER → 2025-04-30 07:40 | Outpatient (REF) | payer MEDICARE, OTHER, SELFPAY ==
[2025-04-30 08:06] LABS: Glucose 88 mg/dl (70-99)
== END ==
LOC: PET 07:40
PROVIDERS: ATTENDING PHYSICIAN Internal Medicine Hematology & Oncology
DX: C50.911 Malignant neoplasm of unspecified site of right female breast (principal); E46 Unspecified protein-calorie malnutrition
CPT/HCPCS: 36415; 82947

== ENCOUNTER → 2025-05-08 13:22 | Outpatient (REF) | payer MEDICARE, OTHER, SELFPAY | LOC: PAVMRI 13:22 | PROVIDERS: ATTENDING PHYSICIAN Psychiatry & Neurology Neurology; FAMILY PHYSICIAN Internal Medicine | DX: R90.82 White matter disease, unspecified (principal) | CPT/HCPCS: 72156; 72157 ==